=== PATIENT | male | born 1995 | race Two or more races ===

== ENCOUNTER 2022-04-01 14:42 | Emergency (ER) | payer OTHER ==
[~2022-04-01] VITALS: Ht 185.4 cm; Wt 113.4 kg
[2022-04-01 14:55] VITALS: BP 123/72
[2022-04-01] MEDS ORDERED: IBUPROFEN 400 MG TABLET ONE (15:26)
[2022-04-01] MEDS: IBUPROFEN 400 MG TABLET PO ONE (15:28)
--- NOTE | 2022-04-01 15:28 | NUR ---
MOTRIN PO GIVEN INDICATED, NIDIA WELL.
[2022-04-01] MEDS ORDERED: OXYC-128 PO (16:06)
[2022-04-01] MEDS ORDERED: oxyCODONE/APAP (5/325 MG) 1 UDTAB TABLET ONE (16:09)
[2022-04-01] MEDS: oxyCODONE/APAP (5/325 MG) 1 UDTAB TABLET PO ONE (16:11)
--- NOTE | 2022-04-01 16:12 | NUR ---
tech at bedside for splint application
--- NOTE | 2022-04-01 16:26 | NUR ---
Patient discharged to home in stable condition. Written and verbal after care instructions given. Patient verbalizes understanding of instruction.
== END 2022-04-01 16:28 | disposition home or self-care (01) ==
LOC: ER 14:47
DX: S62.316A Displaced fracture of base of fifth metacarpal bone, right hand, initial encounter for closed fracture (principal); W01.0XXA Fall on same level from slipping, tripping and stumbling without subsequent striking against object, initial encounter; Y93.89 Activity, other specified; Y92.89 Other specified places as the place of occurrence of the external cause; Y99.8 Other external cause status
CPT/HCPCS: 73130-TC